=== PATIENT | male | born 1970 | race American Indian/Alaskan Native ===

== ENCOUNTER 2017-08-11 01:01 | Emergency (ER) | payer SELFPAY ==
[2017-08-11] MEDS ORDERED: MOTRIN PO ONE (04:24)
--- NOTE | 2017-08-11 04:44 | Emergency Department Report ---
ED Lower Extremity HPI - General Chief Complaint: Extremity Problem,Nontraumatic Stated Complaint: HIP PAIN Time Seen by Provider: 08/11/17 04:18 Source: patient Mode of arrival: Ambulatory Limitations: No Limitations - History of Present Illness Initial Comments: This is a 46-year-old male nontoxic, well nourished in appearance, no acute signs of distress presents to the ED complaining of left hip pain 1 day. Patient stated he was laying in bed and it when he stood up he got a sharp pain to his left hip. Patient denies any trauma to the extremity. Denies any numbness, tingling, fever, chills, swelling, chest pain, shortness of breath, nausea vomiting. Patient denies any allergies or past medical history. Patient has a normal gait with slight discomfort. MD Complaint: hip injury -: Gradual, days(s) (1) Injury: Hip: Left Type of Injury: unknown Place: home Severity: mild Severity scale (0 -10): 6 Improves With: nothing Worsens With: nothing Associated Symptoms: able to partially bear weight, ambulatory. denies: snap/ pop sensation, swelling, numbness, tingling, unable to bear weight - Related Data Previous Rx's Medication Instructions Recorded Last Taken Type Acetaminophen/Codeine [Tylenol #3] 1 tab PO TID PRN #14 tab 03/30/15 Unknown Rx Methocarbamol [Robaxin] 750 mg PO BID #14 tab 03/30/15 Unknown Rx Cyclobenzaprine HCl [Flexeril 5 MG 5 mg PO TID PRN #30 tab 07/08/15 Unknown Rx TAB] HYDROcodone/APAP 5-325 [[place] 1 each PO Q6HR PRN #20 tablet 07/08/15 Unknown Rx 5-325 mg TAB] Naproxen [Naprosyn TAB] 375 mg PO BID #30 tablet 07/08/15 Unknown Rx Acetaminophen/Codeine [Tylenol #3] 1 tab PO Q6H PRN #20 tab 01/28/16 Unknown Rx Ibuprofen [Motrin] 600 mg PO Q8H PRN #30 tablet 01/28/16 Unknown Rx Ibuprofen [Motrin 600 MG tab] 600 mg PO Q8H PRN #30 tablet 08/11/17 Unknown Rx Allergies Allergy/AdvReac Type Severity Reaction Status Date / Time No Known Allergies Allergy Verified 09/21/14 14:22 ED Review of Systems ROS: Stated complaint: HIP PAIN Other details as noted in HPI Constitutional: denies: chills, fever Eyes: denies: eye pain, eye discharge, vision change ENT: denies: ear pain, throat pain Respiratory: denies: cough, shortness of breath, wheezing Cardiovascular: denies: chest pain, palpitations Endocrine: no symptoms reported Gastrointestinal: denies: abdominal pain, nausea, diarrhea Genitourinary: denies: urgency, dysuria Musculoskeletal: denies: back pain, joint swelling, arthralgia Skin: denies: rash, lesions Neurological: denies: headache, weakness, paresthesias Psychiatric: denies: anxiety, depression Hematological/Lymphatic: denies: easy bleeding, easy bruising ED Past Medical Hx - Past Medical History Previous Medical History?: Yes Additional medical history: Slipped disc - Surgical History Past Surgical History?: Yes Additional Surgical History: R hand and R leg - Social History Smoking Status: Current Every Day Smoker Substance Use Type: Alcohol, Marijuana - Medications Home Medications: Home Medications Medication Instructions Recorded Confirmed Last Taken Type Acetaminophen/Codeine [Tylenol #3] 1 tab PO TID PRN #14 tab 03/30/15 Unknown Rx Methocarbamol [Robaxin] 750 mg PO BID #14 tab 03/30/15 Unknown Rx Cyclobenzaprine HCl [Flexeril 5 MG 5 mg PO TID PRN #30 tab 07/08/15 Unknown Rx TAB] HYDROcodone/APAP 5-325 [[place] 1 each PO Q6HR PRN #20 tablet 07/08/15 Unknown Rx 5-325 mg TAB] Naproxen [Naprosyn TAB] 375 mg PO BID #30 tablet 07/08/15 Unknown Rx Acetaminophen/Codeine [Tylenol #3] 1 tab PO Q6H PRN #20 tab 01/28/16 Unknown Rx Ibuprofen [Motrin] 600 mg PO Q8H PRN #30 tablet 01/28/16 Unknown Rx Ibuprofen [Motrin 600 MG tab] 600 mg PO Q8H PRN #30 tablet 08/11/17 Unknown Rx ED Physical Exam - General Limitations: No Limitations General appearance: alert, in no apparent distress - Head Head exam: Present: atraumatic, normocephalic, normal inspection - Eye Eye exam: Present: normal appearance, PERRL, EOMI. Absent: scleral icterus, conjunctival injection, nystagmus, periorbital swelling, periorbital tenderness - ENT ENT exam: Present: normal exam, normal orophraynx, mucous membranes moist, TM's normal bilaterally, normal external ear exam - Neck Neck exam: Present: normal inspection, full ROM. Absent: tenderness, meningismus, lymphadenopathy, thyromegaly - Respiratory Respiratory exam: Present: normal lung sounds bilaterally. Absent: respiratory distress, wheezes, rales, rhonchi, stridor, chest wall tenderness, accessory muscle use, decreased breath sounds, prolonged expiratory - Cardiovascular Cardiovascular Exam: Present: regular rate, normal rhythm, normal heart sounds. Absent: bradycardia, tachycardia, irregular rhythm, systolic murmur, diastolic murmur, rubs, gallop - GI/Abdominal GI/Abdominal exam: Present: soft, normal bowel sounds. Absent: distended, tenderness, guarding, rebound, rigid, diminished bowel sounds - Rectal Rectal exam: Present: deferred - Extremities Exam Extremities exam: Present: normal inspection, full ROM, normal capillary refill. Absent: tenderness, pedal edema, joint swelling, calf tenderness - Expanded Lower Extremity Exam Left Hip exam: Present: normal inspection, full ROM, external rotation, internal rotation, pelvic stability. Absent: tenderness, swelling, abrasion, laceration , ecchymosis, deformity, crepidus, dislocation, erythema, shortening Upper Leg exam: Present: normal inspection, full ROM. Absent: tenderness, swelling, abrasion, laceration, ecchymosis, deformity, crepidus, dislocation, erythema Knee exam: Present: normal inspection, full ROM, full knee extension. Absent: tenderness, swelling, abrasion, laceration, ecchymosis, deformity, crepidus, dislocation, erythema, effusion, pain w/ pronation/supination, posterior draw sign, pain/laxity with valgus, pain/laxity with varus Lower Leg exam: Present: normal inspection, full ROM. Absent: tenderness, swelling, abrasion, laceration, ecchymosis, deformity, crepidus, dislocation, erythema, palpable cord, Swapnil's sign Ankle exam: Present: normal inspection, full ROM. Absent: tenderness, swelling , abrasion, laceration, ecchymosis, deformity, crepidus, dislocation, erythema, anterior draw sign Foot/Toe exam: Present: normal inspection, full ROM. Absent: tenderness, swelling, abrasion, laceration, ecchymosis, deformity, crepidus, dislocation, erythema, amputation, puncture wound, foreign body, calcaneal tenderness, tenderness at base of 5th metatarsal, nail avulsion, subungual hematoma Neuro vascular tendon exam: Present: no vascular compromise. Absent: pulse deficit, abnormal cap refill, motor deficit, sensory deficit, tendon deficit, extremity cold to touch, pallor, abnormal 2-point discrimination, decreased fine /light touch, foot drop, peroneal nerve deficit, significant pain with passive ROM of distal joint Gait: Positive: observed and limited by pain - Back Exam Back exam: Present: normal inspection, full ROM. Absent: tenderness, CVA tenderness (R), CVA tenderness (L), muscle spasm, paraspinal tenderness, vertebral tenderness, rash noted - Neurological Exam Neurological exam: Present: alert, oriented X3, CN II-XII intact, normal gait, reflexes normal - Psychiatric Psychiatric exam: Present: normal affect, normal mood - Skin Skin exam: Present: warm, dry, intact, normal color. Absent: rash ED Course Vital Signs 08/11/17 01:29 Temperature 97.9 F Pulse Rate 69 Respiratory 18 Rate Blood Pressure 115/78 O2 Sat by Pulse 100 Oximetry - Reevaluation(s) Reevaluation #1: 08/11/17 04:41 Patient is speaking in full sentences with no signs of distress noted. ED Lower Extremity MDM - Medical Decision Making This is a 46-year-old male that presents with left hip strain. Patient was examined myself. Patient is stable. X-ray has been obtained of the left hip and femur with normal findings and no fat findings of any abnormalities, fractures, or dislocations. Patient has been notified of x-ray results with no question noted by the patient. Patient was instructed to rest, elevate, ice extremity. Patient was referred to follow up with Dr. Alston in 3-5 days or if symptoms worsen and continue return to emergency room as soon as possible. Patient received crutches at the time of discharge. Patient received ibuprofen 800 mg by mouth in the ED as well as discharge. At time time of discharge, the patient does not seem toxic or ill in appearance. No acute signs of distress noted. Patient agrees to discharge treatment plan of care. No further questions noted by the patient. Critical care attestation.: If time is entered above; I have spent that time in minutes in the direct care of this critically ill patient, excluding procedure time. ED Disposition Clinical Impression: Strain of left hip Qualifiers: Encounter type: initial encounter Qualified Code(s): S76.012A - Strain of muscle, fascia and tendon of left hip, initial encounter Arthralgia Qualifiers: Joint pain location: hip Laterality: left Qualified Code(s): M25.552 - Pain in left hip Disposition: TO HOME OR SELFCARE Is pt being admited?: No Does the pt Need Aspirin: No Condition: Stable Instructions: Arthralgia (ED), Ibuprofen (By mouth), Crutch Instructions (ED) Additional Instructions: Follow-up with Dr. Alston in 3-5 days or if symptoms worsen or continue return to emergency room as soon as possible. Rest, elevate, ice extremity. Prescriptions: Ibuprofen [Motrin 600 MG tab] 600 mg PO Q8H PRN #30 tablet PRN Reason: Pain Referrals: PRIMARY MD JUDI [Primary Care Provider] - 3-5 Days LEONELA ALSTON MD [Staff Physician] - 3-5 Days [facility] [Outside] - 3-5 Days [facility] [Outside] - 3-5 Days
--- NOTE | 2017-08-11 05:11 | XRay Report ---
FINAL REPORT EXAM: XR HIP 2-3V LT HISTORY: PAIN COMPARISONS: None. FINDINGS: AP pelvis with frog-leg lateral view left hip Left hip joint is intact. Hip joint spaces are symmetric and preserved. No fractures. IMPRESSION: No fracture or dislocation.
--- NOTE | 2017-08-11 05:54 | XRay Report ---
FINAL REPORT EXAM: XR FEMUR 2+V LT HISTORY: PAIN of the left femur COMPARISONS: Left hip radiographs of the same date FINDINGS: AP and lateral views left femur No bone lesion, periosteal reaction, or fracture. No deformity or gross malalignment. IMPRESSION: No acute osseous finding
[2017-08-11 06:21] VITALS: BP 112/73
== END 2017-08-11 06:21 | disposition home or self-care (01) ==
LOC: ED 01:01
DX: S76.012A Strain of muscle, fascia and tendon of left hip, initial encounter (principal); F17.200 Nicotine dependence, unspecified, uncomplicated; F12.90 Cannabis use, unspecified, uncomplicated; X58.XXXA Exposure to other specified factors, initial encounter; Y93.89 Activity, other specified; Y99.9 Unspecified external cause status; Y92.89 Other specified places as the place of occurrence of the external cause

== ENCOUNTER 2021-01-25 20:38 | Emergency (ER) | payer OTHER ==
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
[2021-01-25 21:50] VITALS: BP 102/68
== END 2021-01-25 21:25 | disposition home or self-care (01) ==
LOC: ED 20:38
DX: S39.012A Strain of muscle, fascia and tendon of lower back, initial encounter (principal); Z79.899 Other long term (current) drug therapy; Z98.890 Other specified postprocedural states; V49.49XA Driver injured in collision with other motor vehicles in traffic accident, initial encounter; Y92.410 Unspecified street and highway as the place of occurrence of the external cause; Y93.89 Activity, other specified; Y99.8 Other external cause status
CPT/HCPCS: 99282

== ENCOUNTER 2021-10-08 06:35 | Emergency (ER) | payer SELFPAY ==
[2021-10-08 06:49] VITALS: BP 122/89
[2021-10-08] MEDS ORDERED: IBUPROFEN 800 MG TAB PO ONE (07:54)
[2021-10-08] MEDS ORDERED: LIDOCAINE VISCOUS 2% 15 ML ORAL LIQD MM ONE (07:54)
--- NOTE | 2021-10-08 07:54 | Emergency Department Report ---
ED ENT HPI - General Chief complaint: Dental/Oral Stated complaint: TOOTHACHE Time Seen by Provider: 10/08/21 07:14 Source: patient Mode of arrival: Ambulatory Limitations: No Limitations - History of Present Illness Initial comments: This is a 50-year-old male nontoxic, well nourished in appearance, no acute signs of distress presents to the ED with c/o of left lower toothache several days. Patient denies following up with a dentist. Patient describes toothache as aching level of 8 out of 10. Patient denies any facial swelling. Patient denies any numbness, tingling, fever, chills, headache, stiff neck, abdominal pain, chest pain, shortness of breath. Patient denies any drug allergies. MD complaint: tooth pain -: days(s) Location: tooth # 1 - pain here Severity: mild Severity scale (0 -10): 8 Quality: aching Consistency: constant Improves with: none Worsens with: none Context- Dental: history of dental caries, poor dental care Associated Symptoms: gum swelling, toothache. denies: fever, cough, pain with swallowing, sore throat, tinnitus, hearing loss, discharge from ear, rhinorrhea - Related Data Previous Rx's Medication Instructions Recorded Last Taken Type Acetaminophen/Codeine [Tylenol #3] 1 tab PO TID PRN #14 tab 03/30/15 Unknown Rx Cyclobenzaprine HCl [Flexeril 5 MG 5 mg PO TID PRN #30 tab 07/08/15 Unknown Rx TAB] HYDROcodone/APAP 5-325 [[place] 1 each PO Q6HR PRN #20 tablet 07/08/15 Unknown Rx 5-325 mg TAB] Acetaminophen/Codeine [Tylenol #3] 1 tab PO Q6H PRN #20 tab 01/28/16 Unknown Rx Ibuprofen [Motrin] 600 mg PO Q8H PRN #30 tablet 01/28/16 Unknown Rx Ibuprofen [Motrin 600 MG tab] 600 mg PO Q8H PRN #30 tablet 08/11/17 Unknown Rx Naproxen [Naprosyn TAB] 375 mg PO BID PRN #14 tablet 01/25/21 Unknown Rx methOCARBAMOL [Robaxin TAB] 750 mg PO TID PRN #21 tab 01/25/21 Unknown Rx Amoxicillin [Amoxicillin TAB] 875 mg PO BID #20 tablet 10/08/21 Unknown Rx Chlorhexidine Mouthwash [Peridex] 15 ml MM BID #1 bottle 10/08/21 Unknown Rx Naproxen 500 mg PO Q12H PRN #12 tablet 10/08/21 Unknown Rx Allergies Allergy/AdvReac Type Severity Reaction Status Date / Time No Known Allergies Allergy Verified 09/21/14 14:22 ED Dental HPI - General Chief complaint: Dental/Oral Stated complaint: TOOTHACHE Time Seen by Provider: 10/08/21 07:14 Source: patient Mode of arrival: Ambulatory Limitations: No Limitations - Related Data Previous Rx's Medication Instructions Recorded Last Taken Type Acetaminophen/Codeine [Tylenol #3] 1 tab PO TID PRN #14 tab 03/30/15 Unknown Rx Cyclobenzaprine HCl [Flexeril 5 MG 5 mg PO TID PRN #30 tab 07/08/15 Unknown Rx TAB] HYDROcodone/APAP 5-325 [[place] 1 each PO Q6HR PRN #20 tablet 07/08/15 Unknown Rx 5-325 mg TAB] Acetaminophen/Codeine [Tylenol #3] 1 tab PO Q6H PRN #20 tab 01/28/16 Unknown Rx Ibuprofen [Motrin] 600 mg PO Q8H PRN #30 tablet 01/28/16 Unknown Rx Ibuprofen [Motrin 600 MG tab] 600 mg PO Q8H PRN #30 tablet 08/11/17 Unknown Rx Naproxen [Naprosyn TAB] 375 mg PO BID PRN #14 tablet 01/25/21 Unknown Rx methOCARBAMOL [Robaxin TAB] 750 mg PO TID PRN #21 tab 01/25/21 Unknown Rx Amoxicillin [Amoxicillin TAB] 875 mg PO BID #20 tablet 10/08/21 Unknown Rx Chlorhexidine Mouthwash [Peridex] 15 ml MM BID #1 bottle 10/08/21 Unknown Rx Naproxen 500 mg PO Q12H PRN #12 tablet 10/08/21 Unknown Rx Allergies Allergy/AdvReac Type Severity Reaction Status Date / Time No Known Allergies Allergy Verified 09/21/14 14:22 ED Review of Systems ROS: Stated complaint: TOOTHACHE Other details as noted in HPI Comment: All other systems reviewed and negative Constitutional: denies: chills, fever Eyes: denies: eye pain, eye discharge, vision change ENT: dental pain. denies: ear pain, throat pain, hearing loss, epistaxis, congestion Respiratory: denies: cough, shortness of breath, wheezing Cardiovascular: denies: chest pain, palpitations Endocrine: no symptoms reported Gastrointestinal: denies: abdominal pain, nausea, diarrhea Genitourinary: denies: urgency, dysuria Musculoskeletal: denies: back pain, joint swelling, arthralgia Skin: denies: rash, lesions Neurological: denies: headache, weakness, paresthesias Psychiatric: denies: anxiety, depression Hematological/Lymphatic: denies: easy bleeding, easy bruising ED Past Medical Hx - Past Medical History Previous Medical History?: No Additional medical history: Slipped disc - Surgical History Additional Surgical History: R hand and R leg - Social History Smoking Status: Never Smoker Substance Use Type: None - Medications Home Medications: Home Medications Medication Instructions Recorded Confirmed Last Taken Type Acetaminophen/Codeine [Tylenol #3] 1 tab PO TID PRN #14 tab 03/30/15 Unknown Rx Cyclobenzaprine HCl [Flexeril 5 MG 5 mg PO TID PRN #30 tab 07/08/15 Unknown Rx TAB] HYDROcodone/APAP 5-325 [[place] 1 each PO Q6HR PRN #20 tablet 07/08/15 Unknown Rx 5-325 mg TAB] Acetaminophen/Codeine [Tylenol #3] 1 tab PO Q6H PRN #20 tab 01/28/16 Unknown Rx Ibuprofen [Motrin] 600 mg PO Q8H PRN #30 tablet 01/28/16 Unknown Rx Ibuprofen [Motrin 600 MG tab] 600 mg PO Q8H PRN #30 tablet 08/11/17 Unknown Rx Naproxen [Naprosyn TAB] 375 mg PO BID PRN #14 tablet 01/25/21 Unknown Rx methOCARBAMOL [Robaxin TAB] 750 mg PO TID PRN #21 tab 01/25/21 Unknown Rx Amoxicillin [Amoxicillin TAB] 875 mg PO BID #20 tablet 10/08/21 Unknown Rx Chlorhexidine Mouthwash [Peridex] 15 ml MM BID #1 bottle 10/08/21 Unknown Rx Naproxen 500 mg PO Q12H PRN #12 tablet 10/08/21 Unknown Rx ED Physical Exam - General Limitations: No Limitations General appearance: alert, in no apparent distress - Head Head exam: Present: atraumatic, normocephalic - Eye Eye exam: Present: normal appearance - Expanded ENT Exam Expanded Ear exam: Present: normal external inspection Mouth exam: Present: normal external inspection, tongue normal. Absent: drooling, trismus, muffled voice Teeth exam: Present: dental caries, fractured tooth #, dental tenderness #, gingival enlargement, other (No dental abscess. No facial swelling) Throat exam: Positive: normal inspection, other (Uvula midline.). Negative: tonsillar erythema, tonsillomegaly, tonsillar exudate, R peritonsillar mass, L peritonsillar mass - Neck Neck exam: Present: normal inspection, full ROM. Absent: lymphadenopathy - Respiratory Respiratory exam: Absent: respiratory distress - Cardiovascular Cardiovascular Exam: Present: regular rate - Extremities Exam Extremities exam: Present: full ROM - Back Exam Back exam: Present: full ROM - Neurological Exam Neurological exam: Present: alert, oriented X3, normal gait - Psychiatric Psychiatric exam: Present: normal affect, normal mood - Skin Skin exam: Present: warm, dry, intact, normal color. Absent: rash ED Course Vital Signs 10/08/21 06:45 Temperature 98.6 F Pulse Rate 82 Respiratory 18 Rate Blood Pressure 122/89 [Right] O2 Sat by Pulse 99 Oximetry - Reevaluation(s) Reevaluation #1: 10/08/21 07:51 Patient is speaking in full sentences with no signs of distress noted. ED Medical Decision Making - Medical Decision Making This is a 50-year-old male that presents with gingivitis and dental caries. Patient is stable and was examined by me. There is no dental abscess. Patient be discharged with amoxicillin and Peridex. Patient given referral for a dentist to see in 3 to 5 days. At time of discharge, the patient does not seem toxic or ill in appearance. No acute signs of distress noted. Patient agrees to discharge treatment plan of care. No further questions noted by the patient. Critical care attestation.: If time is entered above; I have spent that time in minutes in the direct care of this critically ill patient, excluding procedure time. ED Disposition Clinical Impression: Gingivitis, Dental caries Disposition: HOME / SELF CARE / HOMELESS Is pt being admited?: No Does the pt Need Aspirin: No Condition: Stable Additional Instructions: Follow-up with a dentist doctor in 3-5 days or if symptoms worsen and continue return to emergency room as soon as possible. Prescriptions: Amoxicillin [Amoxicillin TAB] 875 mg PO BID #20 tablet Naproxen 500 mg PO Q12H PRN #12 tablet PRN Reason: Pain , Severe (7-10) Chlorhexidine Mouthwash [Peridex] 15 ml MM BID #1 bottle Referrals: PRIMARY [facility] [Referring] - 3-5 Days CANDELARIO DURAN MD [Staff Physician] - 3-5 Days [facility] [Outside] - 3-5 Days [facility] [Outside] - 3-5 Days Forms: Work/School Release Form(ED) Time of Disposition: 07:55
== END 2021-10-08 08:45 | disposition home or self-care (01) ==
LOC: ED 06:35
DX: K05.10 Chronic gingivitis, plaque induced (principal); K02.9 Dental caries, unspecified; Z79.899 Other long term (current) drug therapy
CPT/HCPCS: 99282

== ENCOUNTER 2021-11-02 15:53 | Emergency (ER) | payer SELFPAY ==
[2021-11-02] MEDS ORDERED: ACETAMINOPHEN 325 MG TAB PO ONE (17:45)
--- NOTE | 2021-11-02 17:50 | Emergency Department Report ---
ED ENT HPI - General Chief complaint: Dental/Oral Stated complaint: TOOTHACHE Time Seen by Provider: 11/02/21 17:40 Source: patient Mode of arrival: Ambulatory Limitations: No Limitations - History of Present Illness Initial comments: Patient is a 51-year-old male presents emergency room complaints of left lower dental pain that exacerbated 2 days ago. He reports that he was eating a sandwich and cracked his tooth. He states he has been experiencing some gum swelling. He has associated fever and chills. He denies any facial swelling, difficulty swallowing, difficulty breathing, vomiting. Patient was evaluated in the emergency department in September for dental pain but he did not follow-up with a dentist. Patient denies any past medical history or allergies to medications. - Related Data Previous Rx's Medication Instructions Recorded Last Taken Type Acetaminophen/Codeine [Tylenol #3] 1 tab PO TID PRN #14 tab 03/30/15 Unknown Rx Cyclobenzaprine HCl [Flexeril 5 MG 5 mg PO TID PRN #30 tab 07/08/15 Unknown Rx TAB] HYDROcodone/APAP 5-325 [[place] 1 each PO Q6HR PRN #20 tablet 07/08/15 Unknown Rx 5-325 mg TAB] Acetaminophen/Codeine [Tylenol #3] 1 tab PO Q6H PRN #20 tab 01/28/16 Unknown Rx Ibuprofen [Motrin] 600 mg PO Q8H PRN #30 tablet 01/28/16 Unknown Rx Ibuprofen [Motrin 600 MG tab] 600 mg PO Q8H PRN #30 tablet 08/11/17 Unknown Rx methOCARBAMOL [Robaxin TAB] 750 mg PO TID PRN #21 tab 01/25/21 Unknown Rx Amoxicillin [Amoxicillin TAB] 875 mg PO BID #20 tablet 10/08/21 Unknown Rx Naproxen 500 mg PO Q12H PRN #12 tablet 10/08/21 Unknown Rx Chlorhexidine Mouthwash [Peridex] 15 ml MM BID #1 bottle 11/02/21 Unknown Rx Clindamycin [Clindamycin CAP] 300 mg PO TID 7 Days #21 capsule 11/02/21 Unknown Rx Naproxen [Naprosyn TAB] 375 mg PO BID PRN #14 tablet 11/02/21 Unknown Rx Allergies Allergy/AdvReac Type Severity Reaction Status Date / Time No Known Allergies Allergy Verified 09/21/14 14:22 ED Dental HPI - General Chief complaint: Dental/Oral Stated complaint: TOOTHACHE Time Seen by Provider: 11/02/21 17:40 Source: patient Mode of arrival: Ambulatory Limitations: No Limitations - Related Data Previous Rx's Medication Instructions Recorded Last Taken Type Acetaminophen/Codeine [Tylenol #3] 1 tab PO TID PRN #14 tab 03/30/15 Unknown Rx Cyclobenzaprine HCl [Flexeril 5 MG 5 mg PO TID PRN #30 tab 07/08/15 Unknown Rx TAB] HYDROcodone/APAP 5-325 [[place] 1 each PO Q6HR PRN #20 tablet 07/08/15 Unknown Rx 5-325 mg TAB] Acetaminophen/Codeine [Tylenol #3] 1 tab PO Q6H PRN #20 tab 01/28/16 Unknown Rx Ibuprofen [Motrin] 600 mg PO Q8H PRN #30 tablet 01/28/16 Unknown Rx Ibuprofen [Motrin 600 MG tab] 600 mg PO Q8H PRN #30 tablet 08/11/17 Unknown Rx methOCARBAMOL [Robaxin TAB] 750 mg PO TID PRN #21 tab 01/25/21 Unknown Rx Amoxicillin [Amoxicillin TAB] 875 mg PO BID #20 tablet 10/08/21 Unknown Rx Naproxen 500 mg PO Q12H PRN #12 tablet 10/08/21 Unknown Rx Chlorhexidine Mouthwash [Peridex] 15 ml MM BID #1 bottle 11/02/21 Unknown Rx Clindamycin [Clindamycin CAP] 300 mg PO TID 7 Days #21 capsule 11/02/21 Unknown Rx Naproxen [Naprosyn TAB] 375 mg PO BID PRN #14 tablet 11/02/21 Unknown Rx Allergies Allergy/AdvReac Type Severity Reaction Status Date / Time No Known Allergies Allergy Verified 09/21/14 14:22 ED Review of Systems ROS: Stated complaint: TOOTHACHE Other details as noted in HPI Comment: All other systems reviewed and negative ED Past Medical Hx - Past Medical History Additional medical history: Slipped disc - Surgical History Additional Surgical History: R hand and R leg - Social History Smoking Status: Never Smoker Substance Use Type: None - Medications Home Medications: Home Medications Medication Instructions Recorded Confirmed Last Taken Type Acetaminophen/Codeine [Tylenol #3] 1 tab PO TID PRN #14 tab 03/30/15 Unknown Rx Cyclobenzaprine HCl [Flexeril 5 MG 5 mg PO TID PRN #30 tab 07/08/15 Unknown Rx TAB] HYDROcodone/APAP 5-325 [[place] 1 each PO Q6HR PRN #20 tablet 07/08/15 Unknown Rx 5-325 mg TAB] Acetaminophen/Codeine [Tylenol #3] 1 tab PO Q6H PRN #20 tab 01/28/16 Unknown Rx Ibuprofen [Motrin] 600 mg PO Q8H PRN #30 tablet 01/28/16 Unknown Rx Ibuprofen [Motrin 600 MG tab] 600 mg PO Q8H PRN #30 tablet 08/11/17 Unknown Rx methOCARBAMOL [Robaxin TAB] 750 mg PO TID PRN #21 tab 01/25/21 Unknown Rx Amoxicillin [Amoxicillin TAB] 875 mg PO BID #20 tablet 10/08/21 Unknown Rx Naproxen 500 mg PO Q12H PRN #12 tablet 10/08/21 Unknown Rx Chlorhexidine Mouthwash [Peridex] 15 ml MM BID #1 bottle 11/02/21 Unknown Rx Clindamycin [Clindamycin CAP] 300 mg PO TID 7 Days #21 capsule 11/02/21 Unknown Rx Naproxen [Naprosyn TAB] 375 mg PO BID PRN #14 tablet 11/02/21 Unknown Rx ED Physical Exam - General Limitations: No Limitations General appearance: alert, in no apparent distress - Head Head exam: Present: atraumatic, normocephalic - Eye Eye exam: Present: normal appearance - ENT ENT exam: Present: mucous membranes moist, other (mostly missing left lower back molar, dental caries present, induration of the associated gumline, no facial edema, no fluctuance or drainage, uvula is midline, no uvular edema or deviation, no trismus, no tongue elevation, no muffled voice, no submandibular edema, no trismus) - Neurological Exam Neurological exam: Present: alert, oriented X3 - Psychiatric Psychiatric exam: Present: normal affect, normal mood - Skin Skin exam: Present: warm, dry, intact ED Course Vital Signs 11/02/21 11/02/21 15:57 18:22 Temperature 100.4 F H 99.9 F H Pulse Rate 58 L 80 Respiratory 18 16 Rate Blood Pressure 176/78 Blood Pressure 150/80 [Left] O2 Sat by Pulse 99 99 Oximetry ED Medical Decision Making - Lab Data Vital Signs 11/02/21 11/02/21 15:57 18:22 Temperature 100.4 F H 99.9 F H Pulse Rate 58 L 80 Respiratory 18 16 Rate Blood Pressure 176/78 Blood Pressure 150/80 [Left] O2 Sat by Pulse 99 99 Oximetry - Medical Decision Making Patient is a 51-year-old male presents emergency room complaints of left lower dental pain that exacerbated 2 days ago. He reports that he was eating a sandwich and cracked his tooth. He states he has been experiencing some gum swelling. He has associated fever and chills. He denies any facial swelling, difficulty swallowing, difficulty breathing, vomiting. Patient was evaluated in the emergency department in September for dental pain but he did not follow-up with a dentist. Patient denies any past medical history or allergies to medications. Vitals with low-grade fever. On exam:mostly missing left lower back molar, dental caries present, induration of the associated gumline, no facial edema, no fluctuance or drainage, uvula is midline, no uvular edema or deviation, no trismus, no tongue elevation, no muffled voice, no submandibular edema, no trismus. Examination appears insistent with infected dental caries. No significant dental abscess at this time. No clinical signs of facial abscess, facial cellulitis, or Wild's at this time. Given prescription for medications. Advised patient Please use medication as prescribed. Follow-up with a dentist. it is very important that you follow-up. Return to emergency room for any new or worsening symptoms. Critical care attestation.: If time is entered above; I have spent that time in minutes in the direct care of this critically ill patient, excluding procedure time. ED Disposition Clinical Impression: Infected dental caries Disposition: HOME / SELF CARE / HOMELESS Is pt being admited?: No Does the pt Need Aspirin: No Condition: Stable Additional Instructions: Please use medication as prescribed. Follow-up with a dentist. it is very important that you follow-up. Return to emergency room for any new or worsening symptoms. Prescriptions: Clindamycin [Clindamycin CAP] 300 mg PO TID 7 Days #21 capsule Naproxen [Naprosyn TAB] 375 mg PO BID PRN #14 tablet PRN Reason: pain Chlorhexidine Mouthwash [Peridex] 15 ml MM BID #1 bottle Referrals: [facility] [Outside] - 3-5 Days [facility] [Outside] - 3-5 Days Time of Disposition: 17:49 Print Language: BRUNEIAN
[2021-11-02 18:23] VITALS: BP 150/80
== END 2021-11-02 18:22 | disposition home or self-care (01) ==
LOC: ED 15:53
DX: K02.9 Dental caries, unspecified (principal); Z79.899 Other long term (current) drug therapy
CPT/HCPCS: 99282